=== PATIENT | male | born 1985 | race Caucasian/White ===

== ENCOUNTER 2018-01-01 06:33 | Emergency (ER) | payer SELFPAY ==
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
== END 2018-01-01 07:14 | disposition home or self-care (01) ==
LOC: ER 06:33
DX: S29.012A Strain of muscle and tendon of back wall of thorax, initial encounter (principal); X50.0XXA Overexertion from strenuous movement or load, initial encounter; F17.210 Nicotine dependence, cigarettes, uncomplicated
CPT/HCPCS: 99282

== ENCOUNTER 2018-01-05 19:26 | Emergency (ER) | payer MEDICAID ==
[2018-01-05] MEDS: 0.9 % SODIUM CHLORIDE 1,000 ML BAG IV ONE ×2 (19:44→20:30)
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
[2018-01-05 19:54] LABS: BASO % 0.6 % (0-6); EOS % 4.9 % (0-6); GRAN % 46.1 % (47-80); HEMATOCRIT 41.7 % (42.0-52.0); LYMPH % 36.7 % (16-45); MEAN CELL VOLUME 93.1 fl (81-97); MEAN CORPUSCULAR HEMOGLOBIN 31.3 pg (27-33); MEAN CORPUSCULAR HGB CONC 33.6 g/dl (32-36); MEAN PLATELET VOLUME 11.1 fl (7.4-10.4); MONO % 11.7 % (0-9); PLATELET COUNT 202 K/uL (130-400); RED BLOOD COUNT 4.48 M/uL (4.40-5.70); RED CELL DISTRIBUTION WIDTH 12.5 % (11.5-14.5); WHITE BLOOD COUNT W/O DIFF 8.4 K/uL (4.2-12.2)
[2018-01-05 20:07] LABS: BLOOD UREA NITROGEN 13 mg/dL (6-20); CREATININE 0.8 mg/dL (0.7-1.2); EST GLOMERULAR FILTRATION RATE > 60 mL/min
[2018-01-05 20:08] LABS: TOTAL PROTEIN 6.7 g/dL (6.6-8.7)
[2018-01-05 20:10] LABS: GLUCOSE,RANDOM 84 mg/dL (74-109)
[2018-01-05 20:12] LABS: ALB/GLOB RATIO 1.5 (1.1-1.8); ALKALINE PHOSPHATASE 56 U/L (40-129); ALT/SGPT 32 U/L (<41); AST/SGOT 21 U/L (10.0-50.0)
[2018-01-05 20:13] LABS: CREATINE PHOSPHOKINASE 78 U/L (39-308)
[2018-01-05 20:23] LABS: THYROID STIMULATING HORMONE 0.79 uIU/mL (0.270-4.20)
[2018-01-05 21:12] LABS: URINE APPEARANCE CLEAR; URINE BILIRUBIN NEGATIVE (NEGATIVE); URINE BLOOD NEGATIVE (NEGATIVE); URINE COLOR YELLOW; URINE GLUCOSE (UA) NEGATIVE (NEGATIVE); URINE KETONE NEGATIVE (NEGATIVE); URINE LEUKOCYTE ESTERASE TRACE (NEGATIVE); URINE NITRITE NEGATIVE (NEGATIVE); URINE PROTEIN NEGATIVE (NEGATIVE); URINE UROBILINOGEN 0.2 E.U./dL (0.20 - 1.00)
[2018-01-05 21:23] LABS: URINE BACTERIA NONE SEEN; URINE EPITHELIAL CELLS 0 - 2 (FEW); URINE RBC 0 - 2 (NONE SEEN); URINE WBC 0 - 2 (0-2/hpf)
== END 2018-01-05 21:39 | disposition home or self-care (01) ==
LOC: ER 19:26
DX: E86.0 Dehydration (principal); R42 Dizziness and giddiness; R53.83 Other fatigue; F17.210 Nicotine dependence, cigarettes, uncomplicated
CPT/HCPCS: 80053; 81001; 82550; 84443; 85025; 99284; J7030